=== PATIENT | male | born 1930 | race Caucasian/White ===

== ENCOUNTER 2017-05-07 06:47 | Emergency (ER) | payer OTHER, MEDICARE ==
[~2017-05-07] VITALS: Ht 172.7 cm; Wt 77.3 kg
[2017-05-07 06:51] VITALS: TEMP 97.8
[2017-05-07 07:37] LABS: BASO % 0.2 % (0.0-2.0); EOS # 0.1 (0.0-0.7); GRAN # 6.7 (1.4-6.5); GRAN % 74.1 % (42.2-75.2); HEMOGLOBIN 12.3 g/dl (13.5-18.0); LYMPH # 1.5 (1.2-3.4); LYMPH % 16.4 % (20.0-51.0); MEAN CELL VOLUME 97 fl (80.0-100.0); MEAN CORPUSCULAR HEMOGLOBIN 34 pg (27.0-31.0); MEAN CORPUSCULAR HGB CONC 35 g/dl (33.0-37.0); MEAN PLATELET VOLUME 9.1 fl (7.4-10.4); MONO # 0.7 (0.1-0.6); MONO % 7.9 % (1.7-9.3); PLATELET COUNT 271 K/mm3 (130-400); RED BLOOD COUNT 3.63 M/mm3 (4.20-5.60); REDCELL DISTRIBUTION WIDTH-CV 14.3 % (11.5-14.5); WHITE BLOOD COUNT 9.1 K/mm3 (4.8-10.8)
[2017-05-07 07:39] LABS: PROTHROMBIN TIME 10.6 SECONDS (9.7-12.8)
[2017-05-07 07:41] LABS: HEMATOCRIT 35.3 % (42.0-52.0)
[2017-05-07 07:50] LABS: ADJUSTED CALCIUM 8.9 mg/dL (8.4-10.2); ALBUMIN 3.7 gm/dL (3.5-5.0); CALCIUM 8.7 mg/dL (8.4-10.2); CREATININE, serum 0.67 mg/dL (0.66-1.25); POTASSIUM 4.2 mmol/L (3.4-5.0); TOTAL PROTEIN 6.9 gm/dL (6.4-8.2)
[2017-05-07 08:39] LABS: PH 7 (5-8); SQUAMOUS EPITHELIAL None Seen /hpf; URINE APPEARANCE Cloudy; URINE BACTERIA None Seen /hpf; URINE BILIRUBIN Negative (NEGATIVE); URINE BLOOD 3+ (NEGATIVE); URINE COLOR Red; URINE GLUCOSE Negative (NEGATIVE); URINE KETONE Negative (NEGATIVE); URINE RBC >50 /hpf; URINE UROBILINOGEN Negative (NEGATIVE)
[2017-05-07 08:43] LABS: URINE WBC >50 /hpf
[2017-05-07] MEDS ORDERED: LAC-HYDRIN LOT 225GM TP (09:07)
[2017-05-07] MEDS ORDERED: COMBIRESP IH (09:07)
[2017-05-07] MEDS ORDERED: SINGULAIR 110 MG/TAB PO (09:08)
[2017-05-07] MEDS ORDERED: STRIVERDI2.5 MCG/Ac IH (09:08)
[2017-05-07] MEDS ORDERED: HCTZ 25MG TAB25 MG PO (09:08)
[2017-05-07] MEDS ORDERED: FLOMAX 0.40.4 MG/CAP PO (09:09)
[2017-05-07] MEDS ORDERED: OMNICEF 300MG300 MG PO (09:22)
[2017-05-07 09:40] VITALS: BP 126/80; PULSE 103
== END 2017-05-07 09:42 | disposition home or self-care (01) ==
LOC: COL.ER 06:47
PROVIDERS: Nurse Practitioner
DX: N39.0 Urinary tract infection, site not specified (principal); N99.820 Postprocedural hemorrhage of a genitourinary system organ or structure following a genitourinary system procedure; I10 Essential (primary) hypertension; J44.9 Chronic obstructive pulmonary disease, unspecified
CPT/HCPCS: J0696; J7040